=== PATIENT | male | born 1935 | race Caucasian/White ===

== ENCOUNTER 2020-09-28 16:51 | Emergency (ER) | payer OTHER ==
[2020-09-28 17:03] VITALS: BP 177/100; PULSE 82; RESP 18; TEMP 98.4
[2020-09-28] MEDS ORDERED: ACETAMINOPHEN TAB 500 MG TAB PO STA (18:28)
--- NOTE | 2020-09-28 18:51 | XR ---
PROCEDURE: XR hand complete RT - 3V DATE AND TIME: 09/28/2020 6:21 PM CLINICAL INDICATION: PHH; fall, pain TECHNIQUE: Department protocol COMPARISON: None FINDINGS: There is circumferential wrist soft tissue swelling. There is a mildly comminuted, apex-volar angulated distal radius transverse intra-articular fracture with involvement of the DRUJ and radiocarpal joint. The proximal and distal carpal row bones appear t o be intact. There are no other fractures. IMPRESSION: Distal radius fracture.
--- NOTE | 2020-09-28 18:54 | XR ---
PROCEDURE: XR wrist complete RT - 3V DATE AND TIME: 09/28/2020 6:21 PM CLINICAL INDICATION: PHH; fall, pain TECHNIQUE: Department protocol COMPARISON: None FINDINGS: There is circumferential wrist soft tissue swelling. There is a mildly comminuted, apex-volar angulated distal radius transverse intra-articular fracture with involvement of the DRUJ and radiocarpal joint. The proximal and distal carpal row bones appear t o be intact. [place]-volar distal ulnar fracture also noted. IMPRESSION: Distal radius and ulnar fractures.
[2020-09-28] MEDS ORDERED: HYDROcodone/APAP 5-325MG 1 EACH TAB PO STA (19:08)
--- NOTE | 2020-09-28 19:32 | ED ---
General Adult HPI - General Chief complaint: Extremity Injury, Upper Stated complaint: Fall, wrist injury Time Seen by Provider: 09/28/20 18:10 Source: patient, RN notes reviewed, old records reviewed Mode of arrival: ambulatory Limitations: no limitations - History of Present Illness Initial comments: I evaluated the patient when he was placed in a bed. X-rays are preordered for the patient to expedite the efficiency of his visit. Patient is an 84-year-old male who is right handed with past medical history remarkable for prostate cancer presents emergency Department after experiencing a mechanical fall landing on his outstretched right arm. Patient states that he was climbing stairs when he tripped over one the stairs. He landed forward, landing on his right wrist. He expressed pain at the site. He was able to move his fingers, but had right wrist pain. He presents for evaluation of his right wrist over concern for possible fracture. Denies any other injuries. Denies hitting his head or strength loss conscious. Patient is not on blood thinners. He has no spinal tenderness palpation. Denies any abdominal pain, chest pain, shortness breath. He has no other acute complaints at this time. He denies any sensory deficits of the right hand. This endorse some mild weakness secondary to pain in the right wrist. - Related Data Previous Rx's Medication Instructions Recorded HYDROcodone/APAP 5-325MG [[place] 1 tab PO Q6HR PRN 3 Days #12 tab 09/28/20 5-325] Ibuprofen [Motrin] 800 mg PO Q8H PRN 7 Days #21 tab 09/28/20 Allergies Allergy/AdvReac Type Severity Reaction Status Date / Time chocolate flavor Allergy Unknown Verified 09/28/20 17:03 Penicillins Allergy Unknown Verified 09/28/20 17:03 Review of Systems ROS Statement: Those systems with pertinent positive or pertinent negative responses have been documented in the HPI. Review of Systems: CONST: Denies fever EYES: Denies blurry vision ENT: Denies nasal congestion C/V: Denies Chest pain RESP: Denies shortness of breath GI: Denies abdominal pain : Denies dysuria SKIN: Denies rash. MSK: Endorses right wrist pain. NEURO: Denies headache ROS Other: All systems not noted in ROS Statement are negative. Past Medical History Past Medical History: Cancer Additional Past Medical History / Comment(s): prostate cancer History of Any Multi-Drug Resistant Organisms: None Reported Past Psychological History: No Psychological Hx Reported Smoking Status: Former smoker Past Alcohol Use History: None Reported Past Drug Use History: None Reported General Exam - General Exam Comments Initial Comments: General: Appears in mild distress secondary to right wrist pain. HEAD: Normal with no signs of head trauma. EYES: PERRLA, EOMI, conjunctiva normal, no discharge. Pupils are 3 mm and equal bilaterally. ENT: Hearing grossly intact, normal oropharynx. RESPIRATORY: Clear breath sounds bilaterally. C/V: Regular rate and rhythm. Peripheral pulses are 2+ and intact throughout including the right radial pulse. ABD: Abd is soft, nontender, nondistended EXT: Patient is reduced range of motion of the right wrist with surrounding edema likely secondary to acute fracture. There is no obvious deformity otherwise. He is able to range his right wrist but it is limited secondary to pain. There is no neurovascular compromise in the right hand.. No C, T, L- spine tenderness to palpation in the midline. SKIN: Swelling over the right wrist. NEURO: Alert and oriented 4. No focal sensory strength deficits Limitations: no limitations Course Vital Signs 09/28/20 16:59 Temperature 98.4 F Pulse Rate 82 Respiratory 18 Rate Blood Pressure 177/100 O2 Sat by Pulse 94 L Oximetry Procedures - Orthopedic Fracture Reduction Fracture #1 Consent Obtained: verbal consent Side: right Fracture Reduction Location: radius, ulna Analgesia: none Technique: direct manipulation Post-Reduction Neuro Exam: intact Post-Reduction Vascular Exam: intact Splint Applied: Yes (sugar tong) Patient Tolerated Procedure: well - Orthopedic Splinting/Casting Injury #1 Side: right Upper Extremity Injury Location: wrist Upper Extremity Immobilizer: sugar tong splint Medical Decision Making - Medical Decision Making Based on patient's presentation and physical exam, I'm concerned for acute bony tracking. The patient's right wrist. We did obtain x-rays of the right wrist and hand, which revealed a distal intra-articular fractures of the right radius and ulna. There is mild displacement. I discussed this with the patient explaining that I would like to splint the fracture and he can follow-up with orthopedics an outpatient basis. I did speak with Dr. Canas over the phone who was in agreement with this plan. Patient tolerated a sugar tong splint of the right hand and arm without difficulty. Attempt was made to reduce a mildly displaced radius. He is neurovascularly intact following splinting. I do believe it is safer to be discharged home at this time. He was in agreement this plan. He completed the opiate lets start talking form. I will provide the patient with a prescription for [place]-5 12 tabs, ibuprofen. I instructed the patient to follow up with their PCP in the next 3 days. I provided contact information for follow up with orthopedic surgery, Dr. Canas tomorrow. I explained that the patient should return to the emergency department if they experience any worsening symptoms. Strict return precautions were discussed with the patient. The patient expressed understanding of these instructions. I answered all questions that the patient had. The patient was discharged home in fair condition with their prescriptions and follow up information. Disposition Clinical Impression: Fracture dislocation of wrist, Fracture of distal radius and ulna, Aftercare for cast or splint check or change, Fall Disposition: HOME SELF-CARE Condition: Fair Instructions (If sedation given, give patient instructions): Wrist Injury (ED), Wrist Fracture in Adults (ED) Prescriptions: Ibuprofen [Motrin] 800 mg PO Q8H PRN 7 Days #21 tab PRN Reason: Pain HYDROcodone/APAP 5-325MG [[place] 5-325] 1 tab PO Q6HR PRN 3 Days #12 tab PRN Reason: Pain Is patient prescribed a controlled substance at d/c from ED?: Yes If prescribed controlled substance>3 days was MAPS reviewed?: Prescribed <3 Days Referrals: None,Stated [Primary Care Provider] - 1-2 days Alhaji Canas MD [STAFF PHYSICIAN] - 1-2 days
== END 2020-09-28 20:06 | disposition home or self-care (01) ==
LOC: EC 16:51
DX: S52.501A Unspecified fracture of the lower end of right radius, initial encounter for closed fracture (principal); S52.601A Unspecified fracture of lower end of right ulna, initial encounter for closed fracture; Z85.46 Personal history of malignant neoplasm of prostate; Z87.891 Personal history of nicotine dependence; Z88.0 Allergy status to penicillin; W10.8XXA Fall (on) (from) other stairs and steps, initial encounter
CPT/HCPCS: 25605; 99284